=== PATIENT | male | born 1970 | race Caucasian/White ===

== ENCOUNTER 2020-03-22 06:32 | Inpatient (IN) | payer BC ==
[~2020-03-22] VITALS: Ht 182.9 cm; Wt 95.7 kg
--- NOTE | 2020-03-22 07:11 | NUR ---
report recieved from Angeli KAPADIA, pt resting in bed.
[2020-03-22 07:17] LABS: TROPONIN I 0.085 ng/mL (0.000-0.045)
--- NOTE | 2020-03-22 09:37 | NUR ---
[facility] AT BEDSIDE FOR EVALUATION.
--- NOTE | 2020-03-22 10:15 | NUR ---
MEAL PROVIDED STEADY AMBULATION TO BATHROOM.
[2020-03-22] MEDS ORDERED: ENOXAPARIN 40 MG/0.4 ML ONE (10:20)
[2020-03-22] MEDS ORDERED: POLYETHYLENE GLYCOL 17 GM PACKET PO PRN (10:30)
[2020-03-22] MEDS ORDERED: NITROGLYCERIN 0.4 MG/SPRAY SL PRN (10:30)
[2020-03-22] MEDS ORDERED: morphine SULFATE 10 MG/ML, 1ML IVPush PRN (10:30)
[2020-03-22] MEDS ORDERED: ACETAMINOPHEN 325 MG TABLET PO PRN (10:30)
[2020-03-22] MEDS ORDERED: BISACODYL 10 MG SUPP PR PRN (10:30)
[2020-03-22] MEDS ORDERED: SODIUM CHLORIDE 0.9% 1,000 ML IV SCH (10:30)
[2020-03-22] MEDS ORDERED: NITROGLYCERIN 0.4 MG BOTTLE (25 TABS) SL PRN (10:30)
[2020-03-22] MEDS ORDERED: DOCUSATE 100 MG CAPSULE PO PRN (10:30)
[2020-03-22] MEDS ORDERED: ENOXAPARIN 40 MG/0.4 ML SQ SCH (10:30)
[2020-03-22] MEDS: SODIUM CHLORIDE 0.9% 1,000 ML IV SCH ×2 (10:30→20:44)
[2020-03-22 11:06] LABS: TROPONIN I 0.582 ng/mL (0.000-0.045)
--- NOTE | 2020-03-22 12:06 | NUR ---
REPORT CALLED TO SRI KAPADIA, MEAL PROVIDED,
[2020-03-22 12:25] VITALS: BP 147/99
[2020-03-22] MEDS ORDERED: MONT10TA11 PO (12:51)
[2020-03-22] MEDS ORDERED: NAPR220C2 PO (12:51)
[2020-03-22] MEDS ORDERED: OMNIPAQUE 350 MG/ML, 75ML BOTTLE ONE (14:57)
[2020-03-22] MEDS ORDERED: ENALAPRILAT 1.25 MG/ML, 2ML IV PRN (17:00)
[2020-03-22] MEDS ORDERED: HEPARIN 5,000 UNITS/ML, 1ML IV ONE (18:30)
[2020-03-22] MEDS: CARVEDILOL 3.125 MG TABLET PO SCH (18:41)
[2020-03-22] MEDS: ATORVASTATIN 40 MG TABLET PO SCH (19:39)
[2020-03-22] MEDS: HEPARIN 25,000 UNITS/250ML PMX 250 ML IV PRN (19:41)
[2020-03-22 20:06] VITALS: BP 118/77
[2020-03-22] MEDS ORDERED: FAMOTIDINE 20 MG TABLET PO SCH (21:00)
[2020-03-23 01:54] LABS: BASOPHILS # (AUTO) 0.01 x10^3/uL (0-0.1); BASOPHILS % (AUTO) 0 % (0-1); EOSINOPHILS # (AUTO) 0.27 x10^3/uL (0-0.4); EOSINOPHILS % (AUTO) 4 % (1-7); LYMPHOCYTES # (AUTO) 2.38 x10^3/uL (1-3.4); LYMPHOCYTES % (AUTO) 32 % (22-44); MD NO; MEAN CORPUSCULAR HEMOGLOBIN 30.7 pg (27.5-34.5); MEAN CORPUSCULAR HGB CONC 33.8 g/dL (33.2-36.2); MEAN CORPUSCULAR VOLUME 90.8 fL (81-97); MEAN PLATELET VOLUME 8.6 fL (7.4-10.4); MONOCYTES # (AUTO) 0.44 x10^3/uL (0.2-0.8); MONOCYTES % (AUTO) 6 % (2-9); NEUTROPHILS % (AUTO) 58 % (42-75); PLATELET COUNT 204 x10^3/uL (130-400); RED BLOOD COUNT 4.71 x10^6/uL (4.38-5.82); RED CELL DISTRIBUTION WIDTH 13.2 % (9.4-14.8)
[2020-03-23 02:06] LABS: ALANINE AMINOTRANSFERASE 27 U/L (12-78); ALBUMIN 3.5 g/dL (3.4-5.0); CALCIUM 8.5 mg/dL (8.5-10.1)
[2020-03-23 02:09] LABS: ALKALINE PHOSPHATASE 52 U/L (45-117); BILIRUBIN,TOTAL 0.9 mg/dL (0.2-1.0); CHOL/HDL RATIO 3.4; CHOLESTEROL, TOTAL 169 mg/dL (140-239); CREATININE 0.91 mg/dL (0.7-1.3); HDL CHOL % 29 % (26-37); HDL CHOLESTEROL (DIRECT) 49 mg/dL (40-60); LDL CHOLESTEROL,CALCULATED 101 mg/dL (54-169); LDL/HDL RATIO 2.1 (0.5-3.0); TOTAL PROTEIN 6.4 g/dL (6.4-8.2); TRIGLYCERIDES 94 mg/dL (50-200); VLDL CHOLESTEROL 19 mg/dL (0-25)
[2020-03-23 02:13] LABS: ANION GAP 6 mmol/L (5-15); CHLORIDE 113 mmol/L (98-107)
[2020-03-23] MEDS: HEPARIN 5,000 UNITS/ML, 1ML IV PRN ×2 (03:23→16:41)
[2020-03-23 03:36] VITALS: BP 117/65
[2020-03-23] MEDS: SODIUM CHLORIDE 0.9% 1,000 ML IV SCH ×3 (04:52→15:14)
[2020-03-23] MEDS: CARVEDILOL 3.125 MG TABLET PO SCH ×2 (06:13→17:23)
[2020-03-23] MEDS: ASPIRIN 325 MG TABLET EC PO SCH (06:13)
[2020-03-23 08:29] VITALS: BP 128/78
[2020-03-23 13:59] VITALS: BP 127/84
[2020-03-23] MEDS: HEPARIN 25,000 UNITS/250ML PMX 250 ML IV PRN (16:41)
[2020-03-23] MEDS: LACTOBACILLUS CHEW TABLET PO SCH ×2 (17:23→21:28)
[2020-03-23 18:46] VITALS: BP 140/77
[2020-03-23] MEDS: ATORVASTATIN 40 MG TABLET PO SCH (21:28)
[2020-03-24 02:29] VITALS: BP 111/71
[2020-03-24] MEDS: SODIUM CHLORIDE 0.9% 1,000 ML IV SCH ×5 (04:18→22:50)
[2020-03-24] MEDS: CARVEDILOL 3.125 MG TABLET PO SCH ×2 (06:24→17:28)
[2020-03-24] MEDS: ASPIRIN 325 MG TABLET EC PO SCH (06:24)
[2020-03-24] MEDS: LACTOBACILLUS CHEW TABLET PO SCH ×3 (07:58→20:27)
[2020-03-24] MEDS: ONDANSETRON 2MG/ML, 2ML IVPush PRN ×2 (07:59→17:24)
[2020-03-24 08:04] VITALS: BP 120/82
[2020-03-24] MEDS ORDERED: HEPARIN 1,000 UNITS/ML, 10ML ONE (14:12)
[2020-03-24] MEDS ORDERED: VERAPAMIL 2.5 MG/ML, 2ML ONE (14:12)
[2020-03-24] MEDS ORDERED: LIDOCAINE-MPF 1%, 5ML ONE (14:12)
[2020-03-24] MEDS ORDERED: FENTANYL PF 100 MCG/2ML ONE (14:12)
[2020-03-24] MEDS ORDERED: MIDAZOLAM 1 MG/ML, 2ML ONE (14:12)
[2020-03-24] MEDS ORDERED: BIVALIRUDIN 250 MG ONE (14:12)
[2020-03-24 14:19] VITALS: BP 128/81
[2020-03-24 15:05] VITALS: BP 119/76
[2020-03-24] MEDS: ATORVASTATIN 40 MG TABLET PO SCH (20:27)
[2020-03-24] MEDS: ACETAMINOPHEN 325 MG TABLET PO PRN (20:27)
[2020-03-24 21:05] VITALS: BP 115/69
[2020-03-25 02:47] VITALS: BP 118/78
[2020-03-25] MEDS: ACETAMINOPHEN 325 MG TABLET PO PRN (02:52)
[2020-03-25 04:29] LABS: ANION GAP 6 mmol/L (5-15); CALCIUM 8.5 mg/dL (8.5-10.1); CHLORIDE 110 mmol/L (98-107); CREATININE 0.98 mg/dL (0.7-1.3)
[2020-03-25] MEDS: ASPIRIN 325 MG TABLET EC PO SCH (06:37)
[2020-03-25] MEDS: CARVEDILOL 3.125 MG TABLET PO SCH (06:37)
[2020-03-25] MEDS: SODIUM CHLORIDE 0.9% 1,000 ML IV SCH (06:42)
[2020-03-25 08:50] VITALS: BP 131/84
[2020-03-25] MEDS: LACTOBACILLUS CHEW TABLET PO SCH (09:02)
[2020-03-25] MEDS ORDERED: CLOPIDOGREL 75 MG TABLET ONE (09:16)
[2020-03-25] MEDS ORDERED: CLOPIDOGREL 75 MG TABLET PO SCH (09:30)
[2020-03-25] MEDS ORDERED: SODIUM CHLORIDE 0.9% 1,000 ML IV SCH (10:30)
[2020-03-25] MEDS ORDERED: CARV3.1212 PO (10:39)
[2020-03-25] MEDS ORDERED: ASPI81TA45 PO (10:39)
[2020-03-25] MEDS ORDERED: NITR0.4T28 SL (10:39)
[2020-03-25] MEDS ORDERED: CLOP75TA PO (10:39)
[2020-03-25] MEDS ORDERED: ATOR40TA78 PO (10:39)
[2020-03-25] MEDS ORDERED: ACID1TAB7 PO (10:39)
[2020-03-26] MEDS ORDERED: ASPIRIN 81 MG TABLET EC PO SCH (06:00)
== END 2020-03-25 12:55 | disposition home or self-care (01) | DRG 282 ==
LOC: SUATTDRO 07:09 → ED 07:47 → EDIP 08:00 → 5SO 12:16 → DCLOUNGE 03-25 12:45
PROVIDERS: ADMIT Family Medicine; ATTEND Internal Medicine
PROC: 4A023N7 Measurement of Cardiac Sampling and Pressure, Left Heart, Percutaneous Approach (ICD-10-PCS; principal; 2020-03-22)
PROC: B2111ZZ Fluoroscopy of Multiple Coronary Arteries using Low Osmolar Contrast (ICD-10-PCS; 2020-03-22)
PROC: B2151ZZ Fluoroscopy of Left Heart using Low Osmolar Contrast (ICD-10-PCS; 2020-03-22)
DX: I21.4 Non-ST elevation (NSTEMI) myocardial infarction (principal); D75.1 Secondary polycythemia; E66.9 Obesity, unspecified; E86.0 Dehydration; F17.210 Nicotine dependence, cigarettes, uncomplicated; I10 Essential (primary) hypertension; I25.10 Atherosclerotic heart disease of native coronary artery without angina pectoris; J30.2 Other seasonal allergic rhinitis; K21.9 Gastro-esophageal reflux disease without esophagitis; Z80.3 Family history of malignant neoplasm of breast; Z80.42 Family history of malignant neoplasm of prostate; Z79.82 Long term (current) use of aspirin; Z68.28 Body mass index [BMI] 28.0-28.9, adult
CPT/HCPCS: 36415; 71275; 80048; 80053; 80061; 82550; 83735; 84100; 84443; 84484; 85025; 85520; 93005; 93306; 93356; 93458; 96360; 96372; 99156; C1769; C1894; G0378; J0583; J1644; J1650; J2250; J2405; J3010; Q9967; J7030